=== PATIENT | female | born 1970 | race Caucasian/White ===

== ENCOUNTER 2020-12-24 00:33 | Emergency (ER) | payer OTHER, SELFPAY ==
[2020-12-24 00:34] VITALS: BP 187/90; PULSE 71; RESP 18; TEMP 36.1; O2SAT 99; BMI 35.4
[2020-12-24 00:44] VITALS: BP 159/79; PULSE 70; RESP 18; O2SAT 99
--- NOTE | 2020-12-24 00:57 | EKG12_ITS ---
Test Reason : DYSRHYTHMIA Blood Pressure : / mmHG Vent. Rate : 054 BPM Atrial Rate : 054 BPM P-R Int : 186 ms QRS Dur : 094 ms QT Int : 446 ms P-R-T Axes : 022 023 060 degrees QTc Int : 422 ms Sinus bradycardia Otherwise normal ECG Confirmed by ILIR LOPEZ, RORO ([id number]), editor managing director MAYLIN LA ([id number]) on 12/25/2020 10:09:52 AM Referred By: JADEN Confirmed By:RORO HAZEL MD
--- NOTE | 2020-12-24 00:58 | RAD_ITS ---
STUDY: X-RAY CHEST REASON FOR EXAM: Female, 50 years old. cp TECHNIQUE: Single AP portable view of the chest. COMPARISON: 12/18/2014. FINDINGS: The lungs are clear and expanded. There is no demonstrated pleural abnormality. Normal size heart. Normal mediastinum and jose rafael. Normal visualized pulmonary arteries. Normal visualized aortic arch and descending thoracic aorta. Normal visualized thoracic spine. Normal visualized ribs, clavicles, and shoulders. There is no demonstrated abnormality of the visualized soft tissue structures of the upper abdomen. RAD/Chest 1 View (Portable) IMPRESSION: Normal x-ray examination of the chest. Electronically Signed: Lorna Shirley MD at 1:33 EST , Service support ,
--- NOTE | 2020-12-24 00:58 | ED.VIS.GEN ---
History of Present Illness Chief Complaint: Dizziness Informant: Patient Onset: Hours - 2 Context: Gradual Onset Timing: Continuous Quality: dizzy Location: head Current Severity: - - gone Maximum Severity: Moderate Worsened by: unk Relieved by: unk Associated Symptoms: chest heaviness, off-balance, lightheaded, pounding pulse in right neck Narrative: Patient presents feeling poorly for a couple hours although she admittedly is feeling much better now. She states that she got up off the couch and was walking in their house, shortly thereafter she was feeling dizzy but describes it as both lightheaded and off balance when walking or sitting, but denies any spinning sensation or megan sensation of movement in her head. She has been having minor pains that have been brief and intermittent in her ears 1 and then the other off and on today. She denies any recent upper respiratory tract infection but states for the last month or 2 she has been dealing with intermittent sharp pains in her sinuses and head, which she has had 3 rounds of antibiotics for treating empirically a possible sinus infection, and blood test, CT of the head, and now has been referred to a vascular neurologist as a result of these persistent symptoms. She was having headaches today, as she does most days, she took Excedrin Migraine for it earlier and it has kept it fairly mild all day, there was no changes acutely or exacerbations of this discomfort when she started have any symptoms tonight. She denies any acute peripheral neurologic symptoms at this time, nor vision changes/diplopia. There was no loss of consciousness. She had no palpitations or dyspnea. No GI symptoms. She measured her blood pressure at home and had a hard time getting a reading but eventually it spit out a systolic in the 180s which we initially had here. At the time of the exam, her blood pressure is 142/65. She states she was feeling pounding in her right neck but not her left, states it felt like her pulse, so she was concerned that she had asymmetric neck pulses which was her primary reason for coming to the ER apparently. She does state that in the last month or 2 since she has had all of these other issues she has never had dizziness like she is feeling tonight. - Past Medical History (1) Mitral valve prolapse Status: Chronic (2) Anxiety Status: Chronic (3) Hypertension Status: Chronic (4) Obstructive sleep apnea Status: Chronic Past Medical History - Allergies and Home Meds Allergies/Adverse Reactions: Allergies azithromycin Adverse Reaction (Verified 12/24/20 00:37) Nausea nicotine [From Nicoderm CQ] Adverse Reaction (Verified 12/24/20 00:37) Hives Primary Care Physician: Cristela Rosen MD [Primary Care Provider] - Surgical History: appendectomy, cholecystectomy, - - Uvulectomy, uterine ablation Lives: Spouse/ Significant Other Smoking Status: Current every day smoker - Family History Maternal Family History: Reports: Unknown Paternal Family History: Reports: Heart Disease Review of Systems General: Denies: Chills, Fever, Sweats Eyes: Denies: Visual changes - bilaterally, Diplopia ENT: Reports: Bilateral ear pain - Intermittent today, not present now, - - Intermittent facial pains. Denies: Rhinorrhea, Sore throat Cardiovascular: Reports: Chest pain - Gone now. Denies: Palpitations Respiratory: Denies: Dyspnea, Cough, Dyspnea on exertion Gastrointestinal: Denies: Abdominal pain, Nausea, Vomiting, Diarrhea, Melena, Hematochezia Genitourinary: Denies: Dysuria, Hematuria, Frequency Musculoskeletal: Denies: Neck pain, Back pain, Swelling, Extremity Pain Skin: Denies: Rash, Wounds Neurological: Reports: Headache. Denies: Weakness, Numbness Physical Exam Vital Signs/Narrative: Vital Signs Temp Pulse Resp BP Pulse Ox 12/24/20 00:44 70 18 159/79 H 99 12/24/20 00:34 96.9 F L 71 18 187/90 H 99 Inital Vital Signs reviewed: Yes General: Well nourished, Well developed, Obese, No Acute Distress Head: Normocephalic, Atraumatic Eyes: Perrl, EOMI, - - No nystagmus ENT: Moist mucous membranes, No rhinorrhea, TM's clear, - - No trismus. No sinus tenderness. Posterior oropharynx clear. Neck: Supple, Nontender, No lymphadenopathy, No JVD Cardiovascular: Regular rate, Regular rhythm, No murmurs Respiratory: No distress, CTA bilaterally, Chest nontender Abdomen: Soft, Nontender, Nondistended, Normal bowel sounds Back: Nontender, Normal Inspection. Negative for: CVA tenderness Extremities: Nontender, No edema. Negative for: Calf Tenderness Skin: Normal color, No rash, No Trauma Neurological: Alert, Oriented x3, Cranial nerves II-XII grossly intact, Normal Strength, Normal Sensation, Normal Gait, - - Negative [place]-Hallpike bilaterally. Psychological: Normal Mood, - - Anxious Diagnostic/Tx/Re-eval Impressions Chest X-Ray 12/24/20 00:58 IMPRESSION: Normal x-ray examination of the chest. Electronically Signed: Lorna Shirley MD at 1:33 EST , Service support , 12/24/20 00:58 Chest 1 View (Portable) [RAD] Stat Laboratory Results 12/24/20 12/24/20 01:10 01:10 WBC 9.1 RBC 4.25 Hgb 12.4 Hct 39.0 MCV 91.8 MCH 29.2 MCHC 31.8 L RDW Std Deviation 41.9 RDW Coeff of Clarissa 12.5 Plt Count 315 MPV 9.1 Immature Gran % (Auto) 0.200 Neut % (Auto) 47.7 Lymph % (Auto) 38.4 [place] % (Auto) 8.8 Eos % (Auto) 4.2 Baso % (Auto) 0.7 Absolute Neuts (auto) 4.4 Absolute Lymphs (auto) 3.51 Nucleated RBC % 0 Sodium 141 Potassium 3.7 Chloride 109 H Carbon Dioxide 24.0 Anion Gap 8 BUN 22 H Creatinine 0.98 Estim Creat Clear Calc 53.11 Est GFR (MDRD) Af Amer 76 Est GFR (MDRD) Non-Af 63 BUN/Creatinine Ratio 22.3 H Glucose 112 H Calcium 8.7 Troponin I < 0.015 - Rhythm Strip Rhythm Strip: Sinus Rhythm Rate: 55 Ectopy: None - EKG Initial EKG Interpretation: Sinus Rhythm, No Acute Injury Pattern - normal EKG Prior: - 2014 - Medical Decision Making EKG, blood work including troponin, and chest x-ray are all normal. Differential here includes peripheral vertigo, an episode of hypertension that made her feel poorly, less likely acute coronary syndrome given her completely normal EKG, and anxiety although I am not suspecting this is the primary problem. As I discussed with the patient, it is unclear if any of this has anything to do with the issues she has been dealing with for the last month or 2, but since she had a negative CT before, in no acute [employer] symptoms tonight or symptoms concerning for subarachnoid hemorrhage, I do not feel she needs repeat CT of the head at this time which I discussed with her and her . Throughout her ED visit, her blood pressures remained in the 130-140 range and she remained asymptomatic. We discussed reasons to return to the hospital we also discussed the possibility of admission for stress testing. However it is Friday night-Friday morning and the hospital does not perform stress testing on Friday she would have to wait till Friday morning so she does not want to stay. She was encouraged to return for any recurrent episodes of chest heaviness. She and are comfortable with this plan. Additionally, with regards to these headaches she has been having, she states she had a negative sinus CT and she is still on antibiotics. Sometimes she thinks the antibiotics are helping. I discussed with her the possibility of antibiotics having anti-inflammatory effects, it does not necessarily sound like she is having a sinus infection. She is scheduled to see otolaryngology on Friday, and she is trying to see a neurovascular interventionalist out of the area. She has not yet been seen by a neurologist, nor had MRI. I gave her a referral to our local neurologist for evaluation as well. ED Disposition - Plan for ED Patient: Disposition: Home or Assisted Living Diagnosis: Intermittent headache, Chest pain, unspecified, Single episode of hypertension, Dizziness, nonspecific Instructions: ED Chest Pain, Uncertain Cause, ED Dizziness, Uncertain Cause Referrals: Cristela Rosen MD [Primary Care Provider] - 3-5 Days if not improving Jose Lizama MD [STAFF PHYSICIAN] - (Call for appointment for further evaluation of your headaches)
[2020-12-24] MEDS: Meclizine HCl 25 MG Tablet PO (01:05)
[2020-12-24 01:17] LABS: Absolute Lymphocyte Count 3.51 X10^3/uL (0.83-4.51); Absolute Neutrophil Count 4.4 X10^3/uL (2.0-7.7); Basophil# 0.06 X10^3/uL; Basophil% 0.7 % (0-1); Eosinophil# 0.38 X10^3/uL; Eosinophils% 4.2 % (0-5); Hemoglobin 12.4 g/dL (12.0-15.0); Lymphocyte # 3.51 X10^3/ul (4.0); Lymphocyte % 38.4 % (19-41); Mean Corp Hgb Conc 31.8 g/dL (32-36); Mean Corpuscular Hgb 29.2 pg (27.0-32.0); Mean Corpuscular Volume 91.8 fL (81-99); Mean Platelet Vol. 9.1 fl (6.2-12.0); Monocyte% 8.8 % (0-10); NRBC Flagged by Analyzer 0 % (0-5); Neutrophil # 4.36 X10^3/uL (2.7-7.7); Neutrophil % 47.7 % (47-70); Platelet Count 315 K/mm3 (150-450); RBC Distribution Width CV 12.5 % (11.6-14.6); RBC Distribution Width SD 41.9 fl (35.1-43.9); Red Blood Count 4.25 M/mm3 (4.2-5.4); White Blood Count 9.1 K/mm3 (4.4-11.0)
[2020-12-24 01:34] LABS: Anion Gap 8 (5-15); BUN 22 mg/dL (7-18); BUN/Creat Ratio 22.3 RATIO (10-20); Calcium,Total 8.7 mg/dL (8.5-10.1); Chloride 109 mmol/L (98-107); Creatinine, Serum 0.98 mg/dL (0.55-1.02); EST Glomerular Filtration Rate 63 mL/min (>60); Est Glom Filt Rate - Afr Amer 76 mL/min (>60); Estimated Creatinine Clearance 53.11 ml/min; Glucose 112 mg/dL (74-106); Potassium 3.7 mmol/L (3.5-5.1); Sodium Level 141 mmol/L (136-145)
[2020-12-24 02:20] VITALS: BP 151/80; PULSE 56; RESP 15; O2SAT 95
== END 2020-12-24 02:28 | disposition home or self-care (01) ==
PROVIDERS: Emergency Provider Emergency Medicine; PCP Internal Medicine
DX: R42 Dizziness and giddiness (principal); R51.9 Headache, unspecified; R07.9 Chest pain, unspecified; I10 Essential (primary) hypertension; E66.9 Obesity, unspecified; F41.9 Anxiety disorder, unspecified; I34.1 Nonrheumatic mitral (valve) prolapse; G47.33 Obstructive sleep apnea (adult) (pediatric); Z90.49 Acquired absence of other specified parts of digestive tract; Z79.899 Other long term (current) drug therapy; F17.200 Nicotine dependence, unspecified, uncomplicated
CPT/HCPCS: 71045; 80048; 84484; 85025; 93005; 99285; A4216

== ENCOUNTER → 2021-01-05 07:56 | Outpatient (CLI) | payer OTHER, SELFPAY ==
[2020-12-24 00:34] VITALS: BMI 35.4
--- NOTE | 2021-01-05 08:30 | MRI_ITS ---
STUDY: MRI BRAIN WITH AND WITHOUT CONTRAST REASON FOR EXAM: Female, 50 years old. EPISODIC CLUSTER H/A TECHNIQUE: Standardized multiplanar fat and water weighted pulse sequences were obtained. IV 17cc Dotarem was administered for the contrast portion of the examination. COMPARISON: None. FINDINGS: No diffusion restriction throughout the brain parenchyma. No focal signal abnormalities throughout the brain parenchyma in all of the pulse sequences. Normal size of the ventricles and extra-axial spaces for the patient''s age. Normal white matter tracts of the supratentorial brain. Normal bilateral basal ganglia. Normal thalami. There is no extra-axial fluid accumulation. Normal flow voids within the major intracranial circulation suggesting patency by spin echo criteria. Normal venous enhancement. There is no enhancing intra-axial or extra-axial abnormality. Normal sella turcica, pituitary gland, infundibular stalk, optic chiasm and hypothalamus. Normal tectal plate and pineal gland. Normal midbrain, adin and medulla. Normal cerebellum. Normal basal cisterns. Normal bilateral temporal bones. Normal bilateral internal auditory canals. No demonstrated orbital abnormality, within the constraints of a routine brain study. Normal visualized paranasal sinuses. Normal calvarium and skull base. Normal visualized soft tissue structures. Normal visualized upper cervical spine. MRI/Brain W/WO Contrast IMPRESSION: Normal unenhanced and enhanced MRI of the brain. Electronically Signed: Bryn Holguin MD at 9:52 EST , Service support ,
== END ==
PROVIDERS: PCP Internal Medicine; Referring Provider Psychiatry & Neurology Clinical Neurophysiology; Visit Provider Psychiatry & Neurology Clinical Neurophysiology
DX: G44.019 Episodic cluster headache, not intractable (principal)
CPT/HCPCS: 70553; A9575

== ENCOUNTER 2021-02-23 09:57 | Emergency (ER) | payer OTHER, SELFPAY ==
[2021-02-23 09:57] VITALS: BP 159/79; PULSE 82; RESP 11; TEMP 36.3; O2SAT 96; BMI 33.2
--- NOTE | 2021-02-23 10:05 | EKG12_ITS ---
Test Reason : CP Blood Pressure : / mmHG Vent. Rate : 076 BPM Atrial Rate : 076 BPM P-R Int : 164 ms QRS Dur : 086 ms QT Int : 394 ms P-R-T Axes : 036 033 011 degrees QTc Int : 443 ms Normal sinus rhythm Normal ECG Confirmed by RORO HAZEL MD ([id number]), editor managing director MAYLIN LA ([id number]) on 02/27/2021 10:55:59 AM Referred By: JAVID
[2021-02-23 10:14] LABS: Basophil# 0.07 X10^3/uL; Basophil% 0.7 % (0-1); Eosinophil# 0.25 X10^3/uL; Eosinophils% 2.5 % (0-5); Hematocrit 46.3 % (37-47); Lymphocyte % 28.1 % (19-41); Mean Corp Hgb Conc 32.4 g/dL (32-36); Mean Corpuscular Hgb 29.5 pg (27.0-32.0); Mean Corpuscular Volume 91.1 fL (81-99); Mean Platelet Vol. 9.1 fl (6.2-12.0); Monocyte# 0.83 X10^3/uL; Monocyte% 8.3 % (0-10); NRBC Flagged by Analyzer 0 % (0-5); Neutrophil # 5.98 X10^3/uL (2.7-7.7); Neutrophil % 60.1 % (47-70); Platelet Count 375 K/mm3 (150-450); RBC Distribution Width CV 12.5 % (11.6-14.6); RBC Distribution Width SD 41.8 fl (35.1-43.9); Red Blood Count 5.08 M/mm3 (4.2-5.4)
[2021-02-23] MEDS: Aspirin 81 MG TAB.CHEW 324 MG PO (10:14)
[2021-02-23 10:21] VITALS: O2SAT 98
[2021-02-23 10:25] LABS: D-Dimer Quantitative (DVT/PE) 0.29 FEU/ug/m (0.27-0.49)
[2021-02-23 10:27] LABS: Anion Gap 5 (5-15); BUN 21 mg/dL (7-18); BUN/Creat Ratio 18.6 RATIO (10-20); Calcium,Total 9.7 mg/dL (8.5-10.1); Chloride 103 mmol/L (98-107); Creatinine, Serum 1.13 mg/dL (0.55-1.02); EST Glomerular Filtration Rate 54 mL/min (>60); Est Glom Filt Rate - Afr Amer 65 mL/min (>60); Estimated Creatinine Clearance 48.18 ml/min; Glucose 106 mg/dL (74-106); Potassium 3.9 mmol/L (3.5-5.1); Sodium Level 137 mmol/L (136-145)
--- NOTE | 2021-02-23 10:30 | RAD_ITS ---
STUDY: X-RAY CHEST REASON FOR EXAM: Female, 50 years old. Chest pain TECHNIQUE: PA and lateral views of the chest. COMPARISON: Comparison is made with prior study dated 12/24/2011. FINDINGS: EKG electrodes are seen. Hyperinflation. The lungs are clear. There is no demonstrated pleural abnormality. Normal size heart. Normal mediastinum and jose rafael. Normal visualized pulmonary arteries. Normal visualized aortic arch and descending thoracic aorta. There are degenerative changes of the visualized thoracic spine. Normal visualized ribs, clavicles, and shoulders. There is no demonstrated abnormality of the visualized soft tissue structures of the upper abdomen. RAD/Chest PA and Lateral IMPRESSION: Hyperinflation. The lungs are clear. Electronically Signed: Simon Mireles MD at 10:58 EDT , Service support ,
--- NOTE | 2021-02-23 10:30 | EDS_ITS ---
HPI History of Present Illness Chief Complaint: Chest Pain Informant: patient Narrative Patient is a 50-year-old female with history of mitral valve prolapse, anxiety, AGUSTÍN, hypertension and cluster headaches presenting with chest pain. Patient states it started around 8 AM this morning on her left center chest. It radiates to her shoulder. She states the pain has been fluctuating intensity and is intermittent. It last for 3 to 5 seconds at a time and occurs every 1 to 5 minutes. She describes the pain as sharp in nature. She notes has been having this pain off and on for the last week but she attributed to her indigestion however today this feels different. She had some associated nausea but denies any vomiting, change in bowel habits or abdominal pain. She denies any urinary symptoms. She denies any swelling of her legs or shortness of breath. Denies any history of DVT or PE. She denies taking any estrogen or hormonal medications. No other complaints at this time. Patient notes that she does smoke cigarettes has a family history of heart disease. [facility] Medical History (Updated 02/23/21 @ 14:[address] Teresa Abbott, ) GERD (gastroesophageal reflux disease) History of cluster headache History of mitral valve prolapse History of seasonal allergies Home Medications atenolol 25 mg PO DAILY 12/18/14 [History Last Taken Unknown] cetirizine 10 mg PO DAILY 12/18/14 [History Last Taken Unknown] Allergy/AdvReac Type Severity Reaction Status Date / Time azithromycin AdvReac Nausea Verified 02/23/21 10:00 nicotine [From Nicoderm CQ] AdvReac Hives Verified 02/23/21 10:00 Social History Smoking Status: Current every day smoker ROS [facility] ED Constitutional Constitutional ED: Denies fatigue or weakness Eyes Eyes: Denies blurry vision or other visual disturbances Cardiovascular Cardiovascular: Reports chest pain; Denies palpitations or racing heartbeat Respiratory/Chest Respiratory/Chest: Denies cough or dyspnea Gastrointestinal Gastrointestinal: Reports nausea; Denies abdominal pain or vomiting Genitourinary Genitourinary ED: Denies decreased urination or dysuria Musculoskeletal Musculoskeletal: Reports other Details: no leg swelling ; Denies extremity pain Integumentary Denies new lesions or rash Neurologic Neurologic: Denies paresthesias or weakness Psychiatric Psychiatric: Reports anxiety; Denies depression Hematologic/Lymphatic Hematologic/Lymphatic: Denies easy bleeding or easy bruising EXAM Physical Exam Const Vital Signs: 04/30/21 09:57 02/23/21 10:21 Temperature 97.4 F L Temperature Source Temporal Pulse Rate 82 Respiratory Rate 11 L Respiratory Effort Normal Non-Labored Respiratory Pattern Normal Blood Pressure 159/79 H Blood Pressure Mean 105 Pulse Ox 96 98 Oxygen Delivery Method Room Air Room Air Positive alert and oriented x3 HEENT Reports normocephalic and moist mucous membranes normocephalic and atraumatic Mouth ED: Yes moist mucous membranes normal Eyes PERRL and EOMs intact bilaterally General Eye ED: Yes normal appearance of both eyes Pupil: PERRL Neck supple and no JVD Lymph Lymphatic: no lymphadenopathy noted Chest Wall inspection of chest normal and palpation of chest normal Resp normal respiratory effort, normal air movement and clear to auscultation bilaterally Effort and Inspection: Negative for respiratory distress Cardio regular rate and regular rhythm Peripheral Pulses: pulses 2+ throughout GI soft to palpation, non-tender and non-distended Back/Spine no CVA tenderness and normal to inspection Extremity normal to inspection and full ROM Neuro oriented x3, moves all extremities and no focal motor deficits Neuro Narrative: No focal deficits Sensorium / Orientation: awake and alert Psych mental status grossly normal and thought process normal Mood & Affect: anxious Skin no rashes or lesions noted and no petechiae Heart Score History: Slightly/Non-Suspicious ECG: Normal Age: >45 - <65 years Risk Factors: >/= 3 Risk Factors or History of CAD Troponin: </= Normal Limit Score: 3 MDM MDM MDM Narrative Medical decision making narrative: Patient evaluated for chest pain. Had she is given aspirin the emergency room. Chest pain is been coming on for the last week. Patient EKG does not show any acute ischemic changes. She is low risk for PE per Wells criteria. D-dimer was ordered which is normal. I do not suspect a PE. CTA chest is not indicated. Patient's heart score is 3 and delta troponin will be performed. Lab Data Labs: Laboratory Results - last 24 hr 02/23/21 02/23/21 02/23/21 10:00 10:00 10:00 WBC 10.0 RBC 5.08 Hgb 15.0 Hct 46.3 MCV 91.1 MCH 29.5 MCHC 32.4 RDW Std Deviation 41.8 RDW Coeff of Clarissa 12.5 Plt Count 375 MPV 9.1 Immature Gran % (Auto) 0.300 Neut % (Auto) 60.1 Lymph % (Auto) 28.1 [place] % (Auto) 8.3 Eos % (Auto) 2.5 Baso % (Auto) 0.7 Absolute Neuts (auto) 6.0 Absolute Lymphs (auto) 2.80 Nucleated RBC % 0 D-Dimer Quant (PE/DVT) 0.29 Sodium 137 Potassium 3.9 Chloride 103 Carbon Dioxide 29.0 Anion Gap 5 BUN 21 H Creatinine 1.13 H Estim Creat Clear Calc 48.18 Est GFR (MDRD) Af Amer 65 Est GFR (MDRD) Non-Af 54 L BUN/Creatinine Ratio 18.6 Glucose 106 Calcium 9.7 Total Bilirubin Direct Bilirubin AST ALT Alkaline Phosphatase Troponin I < 0.015 Total Protein Albumin Globulin Lipase 02/23/21 02/23/21 02/23/21 10:00 10:00 13:42 WBC RBC Hgb Hct MCV MCH MCHC RDW Std Deviation RDW Coeff of Clarissa Plt Count MPV Immature Gran % (Auto) Neut % (Auto) Lymph % (Auto) [place] % (Auto) Eos % (Auto) Baso % (Auto) Absolute Neuts (auto) Absolute Lymphs (auto) Nucleated RBC % D-Dimer Quant (PE/DVT) Sodium Potassium Chloride Carbon Dioxide Anion Gap BUN Creatinine Estim Creat Clear Calc Est GFR (MDRD) Af Amer Est GFR (MDRD) Non-Af BUN/Creatinine Ratio Glucose Calcium Total Bilirubin 0.90 Direct Bilirubin 0.16 AST 18 ALT 23 Alkaline Phosphatase 73 Troponin I < 0.015 Total Protein 8.4 H Albumin 4.3 Globulin 4.1 Lipase 90 Radiography Chest X-Ray - ED: 2 View, Read by ED Physician, Read by Radiologist and No Acute Disease Diagnostic Testing: Radiology Impression Chest X-Ray 02/23/21 10:30 IMPRESSION: Hyperinflation. The lungs are clear. Electronically Signed: Simon Mireles MD at 10:58 EDT , Service support , Rhythm Strip Rhythm Strip: Sinus Rhythm Rate: 76 Ectopy: None EKG Initial EKG: Attestation: I personally reviewed and interpreted this EKG as follows: Interpretation: Sinus Rhythm Comments: Normal sinus rhythm rate of 76 Normal axis Normal intervals Normal ST segments Nonspecific T wave inversion in lead III Compared to prior EKG on 12/24/2020 there are no acute changes Prior: Unchanged Treatment and Re-Evaluation Comments:: Cardiac work-up negative. No signs of DVT/PE on D-dimer. Symptoms improved with IV Pepcid and GI cocktail. Instructed to follow-up with PCP for outpatient cardiac evaluation and possible GI evaluation. Discharge Plan Triage Chief Complaint: Chest Pain ED Provider: Teresa Abbott Dx/Rx/DC Orders Clinical Impression: Chest pain Instructions: ED Pain, Acute, Uncertain Cause Prescriptions: No Action cetirizine 10 MG tablet 10 mg PO DAILY RF: 0 atenolol 25 MG tablet 25 mg PO DAILY RF: 0 Primary Care Provider: Cristela Rosen Referrals: Cristela Rosen MD [Primary Care Provider] - Disposition Disposition: Home, self care Discharge Date/Time: 02/23/21 15:02
[2021-02-23 10:42] LABS: Lipase 90 U/L (73-393)
[2021-02-23 10:47] LABS: AST(SGOT) 18 U/L (15-37); Alanine Aminotransfer ALT/SGPT 23 U/L (13-56); Albumin, Serum 4.3 g/dL (3.2-5.0); Alkaline Phosphatase 73 U/L (45-117); Bilirubin, Direct 0.16 mg/dL (0.00-0.30); Globulin 4.1 g/dL (2.2-4.2); Protein, Total 8.4 g/dL (6.4-8.2)
[2021-02-23] MEDS: Mag Hydrox/Al Hydrox/Simeth 30 ML UDC PO (13:39)
[2021-02-23] MEDS: Famotidine 200 MG/20 ML MDV 20 MG in 0.9% Normal Saline (Pres. free 8 ML 300 MG IV (13:39)
== END 2021-02-23 15:02 | disposition home or self-care (01) ==
PROVIDERS: Emergency Provider Emergency Medicine; PCP Internal Medicine
DX: R07.89 Other chest pain (principal); R11.0 Nausea; I10 Essential (primary) hypertension; I34.1 Nonrheumatic mitral (valve) prolapse; F41.9 Anxiety disorder, unspecified; J30.2 Other seasonal allergic rhinitis; K21.9 Gastro-esophageal reflux disease without esophagitis; G47.33 Obstructive sleep apnea (adult) (pediatric); G44.009 Cluster headache syndrome, unspecified, not intractable; Z82.49 Family history of ischemic heart disease and other diseases of the circulatory system; Z79.899 Other long term (current) drug therapy; F17.210 Nicotine dependence, cigarettes, uncomplicated
CPT/HCPCS: 71046; 80048; 80076; 83690; 84484; 85025; 85379; 93005; 96365; 99285; A4216; J3490